=== PATIENT | female | born 1975 | race Caucasian/White ===

== ENCOUNTER 2019-09-11 09:06 | Outpatient (CLI) | payer OTHER | END 2019-09-11 10:44 | disposition home or self-care (01) | LOC: MRI 09:06 | DX: H90.3 Sensorineural hearing loss, bilateral (principal) | CPT/HCPCS: 70551 ==

== ENCOUNTER 2023-11-09 14:57 | Outpatient (CLI) | payer OTHER | END 2023-11-09 15:07 | disposition home or self-care (01) | LOC: MAMO-SONO 14:57 | PROVIDERS: ATTEND Obstetrics & Gynecology Gynecology | DX: N63 Unspecified lump in breast (principal); Z12.31 Encounter for screening mammogram for malignant neoplasm of breast; N64.4 Mastodynia; N60.11 Diffuse cystic mastopathy of right breast ==